=== PATIENT | male | born 2000 | race Caucasian/White ===

== ENCOUNTER → 2023-03-20 10:01 | Outpatient (BNVA) | payer SELFPAY | PROVIDERS: Family Provider Nurse Practitioner Family; PCP Registered Nurse; Visit Provider Registered Nurse | DX: R55 Syncope and collapse (principal); L91.8 Other hypertrophic disorders of the skin | CPT/HCPCS: 80053; 84443; 85025 ==

== ENCOUNTER → 2024-08-04 08:32 | Outpatient (BNVA) | payer OTHER, SELFPAY | PROVIDERS: Family Provider Registered Nurse; PCP Registered Nurse; Visit Provider Registered Nurse | DX: G47.20 Circadian rhythm sleep disorder, unspecified type (principal); R42 Dizziness and giddiness; E53.8 Deficiency of other specified B group vitamins | CPT/HCPCS: 80053; 82607; 84403; 85025 ==